=== PATIENT | male | born 1975 | race Caucasian/White ===

== ENCOUNTER 2023-06-17 15:03 | Outpatient (CLI) | payer SELFPAY ==
--- NOTE | 2023-06-17 15:47 | Sleep Patient Instructions ---
Sleep Center Visit Summary - Patient Visit Information Reason for Visit: Initial consult for evaluation of sleep disordered breathing and other sleep issues. - Patient Instructions Instructions Attached: Sleep Study Home Monitor Additional Instructions: You will be completing a sleep study, either an in-lab polysomnography (PSG) or home sleep study (HST). You will follow-up in the sleep care office after the sleep study is completed to hear the results and talk about therapy, if needed. You will be called by our office staff to schedule this appointment, but you may contact us with any questions. - Clinic Information Contact: [facility] [address] [place] [address] [email or web address] T: [phone]
--- NOTE | 2023-06-17 15:49 | SLEEP CARE CONSULTATION ---
Information from patient questionnaire entered by Franca Granda. I have reviewed and concur with the information entered by Franca Granda. This document represents the service I personally performed and the decisions made by me, Misa Roque ARNP. History of Present Illness Service Date and Time: 06/17/2023 1503 Reason for Visit: New patient Chief Complaint: reports: Unrefreshed sleep, Snoring, Excessive daytime sleepiness, Observed pauses in breathing, Fatigue, Other (HYPERTENSION) Date of Onset: 10+YRS Usual bedtime: 4712-8673 Time it takes to fall asleep: 5-15MINS Snores at night: Yes Observed to quit breathing while asleep: Yes Sleeps alone due to snoring: No Number of times waking at night: 1-5 Reasons for waking at night: reports: Choking (REPORTED BY SPOUSE), Snoring, Gasping for air (REPORTED BY SPOUSE), Bathroom, Other (UNKNOWN) Toss, Turn, or Twitch while sleeping: Yes Recalls having dreams: Yes Usually gets out of bed at: 0500 Feels refreshed in the morning: No Morning headache: Yes (4 days a week; lasting 1 hr to 4 hrs) Sleepy or fatigued during the day: Yes Ever fallen asleep while driving: Yes (drowsy driving; no accidents) Takes day naps: No Dreams during day naps: No Prior sleep studies: No Additional HPI information: I had the pleasure of seeing ROBYN GERMAN today regarding the possibility of him having a sleep disorder. His current complaints are unrefreshed sleep, snoring, excessive daytime sleepiness, observed pauses in breathing, fatigue and hypertension. He has hypertension. His tells him of "catching his breath" at night and has loud snoring. He wakes up with headaches and is not generally feeling rested in the morning. He says he generally feels more tired in morning than when he went to bed. He wakes up 2-4 times a night and can fall easily back to sleep. He has woke up from his own snoring. - Parasomnia Symptoms Ever been unable to move upon waking from sleep: No Walks in sleep: No Talks in sleep: Yes (whining noises) Ever acted out dreams in sleep: Yes (he will do arm motions according to ) Ever felt weak in the knees when startled or emotional: No Bothered by creepy, crawly, restless sensations in legs: No Problems with memory or concentration: No Subjective Initial Pendleton Sleepiness Scale score: 7 (05/24/23) Past Medical History Past Medical History: reports: Hypertension, Asthma Social History The patient's occupation is a [employer]. Patient is and lives in [place]. Have you smoked in the past 12 months: No Alcohol use: Yes Alcohol amount and frequency: 1 MONTHLY Caffeine use: Yes Caffeine amount and frequency: 2 cups coffee in morning Family History Family history of sleep disordered breathing: No Allergies and Home Medications Known drug allergies: No Drug allergies reviewed: Yes Home medication list reviewed: Yes (as listed) Allergy and home medication list: Allergies No Known Drug Allergies Allergy (Verified 06/15/23 12:11) Home Medications Medication Instructions Recorded Confirmed Last Taken Type Aspirin See Rx Instructions .ROUTE .COMPLEX 06/17/23 06/17/23 Unknown History Hydrochlorothiazide See Rx Instructions .ROUTE .COMPLEX 06/17/23 06/17/23 Un known History Lisinopril See Rx Instructions .ROUTE .COMPLEX 06/17/23 06/17/23 Unknown History Metoprolol Succinate See Rx Instructions .ROUTE .COMPLEX 06/17/23 06/17/23 Unknown History Multivitamin See Rx Instructions .ROUTE .COMPLEX 06/17/23 06/17/23 Unknown History amLODIPine See Rx Instructions .ROUTE .COMPLEX 06/17/23 06/17/23 Unknown History Review of Systems Weight gain over past 5 years: 50, in up phase right now Weight loss over past 5 years: 50 Cardiovascular: reports: high blood pressure Gastrointestinal: denies: heartburn Neurological: reports: headaches Psychiatric: denies: anxiety, depression Ear/Nose/Throat: reports: nasal congestion, sinus problems, dry mouth/throat. denies: tonsillectomy Endocrine: reports: sluggishness Musculoskeletal: reports: neck pain Immunologic: reports: sneezing Physical Exam Vital signs obtained and entered by: MISA AKINS Blood Pressure: 137/88 Cuff size: long (right arm) Heart Rate: 89 O2 Saturation: 96 Height: 5 ft 11 in Weight: 268 lb Body Mass Index: 37.3 BMI Classification: Obese Neck circumference: 18 (inches) Nostrils: patent to airflow Mouth and throat: narrow oropharynx Soft palate: long Hard palate: normal Uvula: normal Uvula visualization: 25% Mallampati Class III Tongue: normal in size Tonsils: 3+/kissing (on right only) Neck: normal w/o lymphadenopathy or thyromegaly Heart: regular rate and rhythm Lungs: clear bilaterally Impression and Plan 1. Suspected Obstructive Sleep Apnea-Hypopnea Syndrome, as suggested by a history of loud and irregular snoring, observed cessation of breath while asleep, gasping or choking in sleep, morning headache, frequent awakening during the night, unrefreshed sleep and excessive daytime sleepiness. Narrow oropharynx and obesity are common predisposing factors for obstructive sleep apnea-hypopnea syndrome. I recommend proceeding to polysomnography to confirm the diagnosis and to assess severity. If the patient has significant sleep disordered breathing, a manual CPAP titration study will also be performed to find the optimal treatment pressure. I informed the patient of what the sleep studies involve and after some discussion, obtained agreement to proceed. The pathophysiology of obstructive sleep apnea-hypopnea syndrome was discussed with the patient and health risks of cardiovascular and cerebrovascular disease if not treated. Risks of drowsy driving discussed in detail and patient advised to avoid long distance driving and to seedling puller at the first sign of drowsiness. Patient agreed to plan. * Schedule polysomnography. * Avoid long distance driving or driving when feeling sleepy. * Avoid alcohol, sedative and muscle relaxant around bedtime. * Attempt to lose weight. * Review instructions provided by trained office staff on how to prepare for the sleep study. * Return for follow-up after sleep study completed. Counseling Topics: Weight loss health impact Plan: PSG/HST Visit Type: In Office Time Spent with Patient (minutes): 30 Provider Statement: I spent 100% of the Face to Face Visit with the patient with greater than 50% spent counseling the patient and coordination of care.
[2023-06-17 16:08] VITALS: BP 137/88; O2SAT 96
== END 2023-06-17 15:04 | disposition home or self-care (01) ==
LOC: SC 15:03
PROVIDERS: ATTEND Nurse Practitioner Family
DX: G47.10 Hypersomnia, unspecified (principal); R53.83 Other fatigue; R06.83 Snoring; G47.8 Other sleep disorders; R06.81 Apnea, not elsewhere classified; I10 Essential (primary) hypertension; E66.9 Obesity, unspecified; Z68.37 Body mass index [BMI] 37.0-37.9, adult
CPT/HCPCS: 99203; 99212

== ENCOUNTER 2023-07-02 14:14 | Outpatient (CLI) | payer SELFPAY | END 2023-07-02 14:15 | disposition home or self-care (01) | LOC: SC 14:14 | PROVIDERS: ATTEND Nurse Practitioner Family | DX: G47.33 Obstructive sleep apnea (adult) (pediatric) (principal); R09.02 Hypoxemia; I10 Essential (primary) hypertension | CPT/HCPCS: 95806 ==

== ENCOUNTER 2023-07-28 13:07 | Outpatient (CLI) | payer SELFPAY ==
--- NOTE | 2023-07-28 14:18 | Sleep Patient Instructions ---
Sleep Center Visit Summary - Patient Visit Information Reason for Visit: Sleep study follow-up - Patient Instructions Instructions Attached: CPAP Additional Instructions: You are being started on CPAP therapy with pressure setting at 4-15 cmH2O. You will need to call the sleep care office to set up your follow up once you have your CPAP machine to check compliance and response to therapy at that time. You may call the office with any concerns about pressure feeling too low or too much for adjustment, if needed. You should contact DME supplier for any questions or concerns about mask or equipment. Please call office to schedule a follow up appointment in the sleep care office one month after obtaining new device. - Clinic Information Contact: [facility] [address] [place] [address] [email or web address] T: [phone]
--- NOTE | 2023-07-28 14:27 | SLEEP CARE CONSULTATION ---
Information from patient questionnaire entered by Franca Granda. I have reviewed and concur with the information entered by Franca Granda. This document represents the service I personally performed and the decisions made by me, Misa Roque ARNP. History of Present Illness Service Date and Time: 07/28/2023 1307 Initial Mentor Sleepiness Scale score: 7 Current Mentor Sleepiness Scale score: 9 Additional HPI information: ROBYN GERMAN returns for follow up and results of the recently performed polysomnography. The sleep study showed severe obstructive sleep apnea with an average AHI of 35.5 and myles oxygen saturation of 82%. I explained the pathophysiology behind obstructive sleep apnea. We then spent quite a bit of time discussing different treatment options. For mild obstructive sleep apnea, surgery and oral appliance are alternatives to nasal CPAP therapy but in moderate or severe cases, nasal CPAP is the most effective and reliable treatment. Because apnea is primarily in supine position, then positional management therapy could be effective. Methods discussed such as positioning with pillows, using a T-shirt with tennis balls in the back or commercial products that have a pillow format on back to prevent supine sleep. I reviewed the impact of weight changes on sleep apnea and strongly recommended losing weight. After some discussion, the patient opted to go with the nasal CPAP therapy. Nasal autoCPAP set at 4-15 cmH20 will be ordered with rationale explained. A manual titration study will be ordered if unable to find optimal pressure with office adjustments. I explained how CPAP machine works and what to expect when using the machine. Using CPAP every night in order to get used to it was emphasized. Patient advised to put CPAP mask on before getting into bed so as not to fall asleep without CPAP. To assist acclimation to CPAP use, it could also be used for a short time during day while reading or watching TV. The patient was instructed to call the CPAP supplier to discuss any mechanical problem that may occur. If the mask given is uncomfortable or is difficult to keep on through the night even with adjustment, contact the CPAP supplier as many will replace with another mask style if notified before 30 days. If snoring or perceives is not getting enough air or too much air from the machine, notify this office. Patient counseled not drink alcohol less than 4 hours befor e bedtime as it can increase snoring and apnea. Patient was cautioned about risks of drowsy driving until sleepiness symptoms resolve. Patient denies drowsy driving. Sleep Study - Results Type of Sleep Study: Home sleep study (COMPLETED 07/02/23) Prior sleep studies: No Polysomnography/Home Sleep Study results: Physician Impression: The quality of the study is good. The length of the study is adequate (> 240 minutes). Please also see the tabulated and graphic data. 1. Obstructive Sleep Apnea-Hypopnea (ICD-10 G47.33), severe, with an AHI of 35.5/hr and myles SaO2 of 82%. During the study, the patient had 160 apneas (160 obstructive, 0 central, 0 mixed) and 88 hypopneas. The longest episode lasted 96.0 seconds. The respiratory events occurred more frequently during supine sleep (supine AHI was 86.5 and non-supine, 13.84). 2. Hypoxemia (ICD-10 R09.02), mild, with the lowest oxygen saturation of 82 % and 18.5 minutes with SaO2 under 90%. Baseline oxygen saturation was normal (Average oxygen saturation was 93%). Allergies and Home Medications Known drug allergies: No Drug allergies reviewed: Yes Home medication list reviewed: Yes (no changes) Allergy and home medication list: Allergies No Known Drug Allergies Allergy (Verified 07/23/23 12:36) Review of Systems Review of systems same as previous: Yes (no changes) Physical Exam Vital signs obtained and entered by: MISA AKINS Blood Pressure: 158/110 Cuff size: long (right arm) Heart Rate: 73 O2 Saturation: 99 Height: 5 ft 11 in Weight: 272 lb 6.4 oz Body Mass Index: 38.0 BMI Classification: Obese Impression and Plan 1. Obstructive Sleep Apnea-Hypopnea Syndrome, severe, with lowest oxygen saturation of 82%. Obviously this is the cause of the patients symptoms of unrefreshed sleep, and excessive daytime sleepiness. Positive pressure therapy could benefit hypertension and asthma. Patient would like to start with the auto CPAP therapy for his sleep apnea. He is self-pay, no insurance. We will try him on an APAP trial. The patient will be started on nasal autoCPAP therapy with pressure set at 4-15 cmH2O. Compliance guidelines also reviewed. He was encouraged to call to have assistance with mask fittings and we discussed using a fullface mask since he is a mouth breather. He may also come in if he has any difficulty with figuring out how to run his machine or fit his mask. He can come in and we can give him a quick rundown on how to use the CPAP as needed. He voiced understanding and agreement. Because the apnea is more severe supine, I instructed to avoid sleeping supine using pillow positioning until able to start CPAP use. 2. Hypoxemia, mild, with a myles oxygen saturation of 82% and 18.5 minutes spent under 90%. The baseline oxygen saturation was normal with an average oxygen sa turation of 93%. 3. Elevated blood pressure reading in patient with hypertension. His blood pressure was 158/110 today. He denied feeling unwell or having any symptoms. He stated that this was a normal reading for him. 4. Obesity, unspecified. Currently patients BMI is 38. Obesity increases the risk of apnea, CPAP pressure requirements and overall health risks especially cardiovascular and diabetes. Thus patient is advised to lose weight. * Nasal auto CPAP therapy, pressure at 4-15 cm H2O. * Attempt to lose weight. * Avoid alcohol consumption near bedtime. * Avoid supine sleep until using CPAP. * The patient is again cautioned about driving until sleepiness completely resolves. * Return one month after CPAP obtained. I will assess response to therapy and compliance at that time. Counseling Topics: Weight loss health impact Prescriptions: Auto CPAP Plan: Start CPAP and followup Visit Type: In Office Time Spent with Patient (minutes): 25 Provider Statement: I spent 100% of the Face to Face Visit with the patient with greater than 50% spent counseling the patient and coordination of care.
[2023-07-28 14:30] VITALS: BP 158/110; O2SAT 99
== END 2023-07-28 13:08 | disposition home or self-care (01) ==
LOC: SC 13:07
PROVIDERS: ATTEND Nurse Practitioner Family
DX: G47.33 Obstructive sleep apnea (adult) (pediatric) (principal); R09.02 Hypoxemia; R03.0 Elevated blood-pressure reading, without diagnosis of hypertension; E66.9 Obesity, unspecified; Z68.38 Body mass index [BMI] 38.0-38.9, adult
CPT/HCPCS: 99212; 99213

== ENCOUNTER 2023-09-23 14:57 | Outpatient (CLI) | payer SELFPAY ==
--- NOTE | 2023-09-23 15:18 | Sleep Patient Instructions ---
Sleep Center Visit Summary - Patient Visit Information Reason for Visit: First compliance follow-up - Patient Instructions Additional Instructions: You were here for follow up of CPAP therapy. You will be continued on CPAP therapy with pressure at 10-13 cmH2O. Please let us know if the pressure change is uncomfortable and we can make further adjustments of the pressure. You should follow up with sleep care in 1-2 months. You may contact us sooner for any questions or concerns. - Clinic Information Contact: [facility] [address] [place] [address] [email or web address] T: [phone]
--- NOTE | 2023-09-23 15:20 | SLEEP CARE CONSULTATION ---
Information from patient questionnaire entered by Lloyd Granda. I have reviewed and concur with the information entered by Lloyd Granda. This document represents the service I personally performed and the decisions made by , Misa Roque ARNP. History of Present Illness Service Date and Time: 09/23/20231456 Previous diagnosis: Severe, Obstructive Sleep Apnea-Hypopnea Syndrome AHI: 35.5 (07/02/23) Reason for follow up: first compliance Equipment type: CPAP (RESMED Airsense 11, s/u 07/30/23, NEED MACHINE) Equipment obtained from: Other ([employer]) Mask brand: [employer] (Simplus, medium cushion) Backup mask available: No (will keep old mask when replaced) Prior sleep studies: No Type of Sleep Study: Home sleep study (COMPLETED 07/02/23) HPI additional information: ROBYN GERMAN was diagnosed to have severe, AHI 35.5, obstructive sleep apnea-hypopnea syndrome and returned today for CPAP therapy first compliance follow-up. Sleep Study - Results Type of Sleep Study: Home sleep study (COMPLETED 07/02/23) Prior sleep studies: No CPAP Compliance Data - Data Reviewed with Patient Average duration of nightly device use: 6 hours 48 minutes Compliance rate %: 100 (55/55 days used) Current pressure setting (cmH2O): 4-15 (median 7.9, avg 11.1, max 12.5) Average residual AHI: 1 Central apnea: 0.1 Obstructive apnea: 0.5 Hypopnea: 0.4 Average large leak: 7.7 L/min Subjective Patient concerns: reports: mask leak noise (just needs adjustment of his mask). denies: aerophagia, mask discomfort, air blowing in eyes, condensation in mask/hose, nasal congestion, dry mouth, nose, throat, epistaxis Observed to snore while using device: No Current pressure setting perceived as: comfortable On therapy, patient: reports: sleeping better, awakening more refreshed, more rested overall. denies: drowsiness while driving Initial [place] Sleepiness Scale score: 7 Current [place] Sleepiness Scale score: 3 () Allergies and Home Medications Known drug allergies: No Drug allergies reviewed: Yes Home medication list reviewed: Yes (no changes) Allergy and home medication list: Allergies No Known Drug Allergies Allergy (Verified 09/21/23 11:35) Review of Systems Review of systems same as previous: Yes (NO CHANGE) Physical Exam Vital signs obtained and entered by: LLOYD Claros MA Blood Pressure: 155/91 (LEFT ARM) Cuff size: long Heart Rate: 74 O2 Saturation: 98 Height: 5 ft 11 in Weight: 272 lb 9.6 oz Body Mass Index: 38.0 BMI Classification: Obese Impression and Plan 1. Obstructive Sleep Apnea-Hypopnea Syndrome, severe, with good treatment compliance and good apnea control. On CPAP therapy, the patient has better sleep quality and is more rested overall. He has significant improvement of his sleep apnea and is satisfied with current therapy. The patients pressure will be changed to autoCPAP 10-13 cmH20 to reflect pressure being used. Patient advised to contact me if pressure change is uncomfortable so that it can be adjusted. Goals for apnea control discussed. Patient's apnea severity and rationale for treatment to reduce apnea, improve sleep quality and reduce cardiovascular and cerebrovascular events was reviewed. I also reviewed the benefit of consistent device use of CPAP for hypertension. 2. Obesity, unspecified. Currently patients BMI is 38. Obesity increases the risk of apnea, CPAP pressure requirements and overall health risks especially cardiovascular and diabetes. Thus patient is advised to lose weight. * Change auto CPAP pressure to 10-13 cmH2O * Notify me if snoring with mask or feeling that the pressure is too much or too little * Attempt to lose weight * Call this office if any problems using CPAP * Return for follow up in 1-2 months, or sooner if concerns arise Adjust device pressure to (cmH2O): 10-13 Counseling Topics: Spare mask, Weight loss health impact Follow up with Sleep Care in: 1-2 months Visit Type: In Office Time Spent with Patient (minutes): 20 Provider Statement: I spent 100% of the Face to Face Visit with the patient with greater than 50% spent counseling the patient and coordination of care.
[2023-09-23 15:55] VITALS: BP 155/91; O2SAT 98
== END 2023-09-23 14:58 | disposition home or self-care (01) ==
LOC: SC 14:57
PROVIDERS: ATTEND Nurse Practitioner Family
DX: G47.33 Obstructive sleep apnea (adult) (pediatric) (principal); E66.9 Obesity, unspecified; Z68.38 Body mass index [BMI] 38.0-38.9, adult
CPT/HCPCS: 99212; 99213

== ENCOUNTER 2023-11-06 13:08 | Outpatient (CLI) | payer SELFPAY ==
--- NOTE | 2023-11-06 13:29 | Sleep Patient Instructions ---
Sleep Center Visit Summary - Patient Visit Information Reason for Visit: 6-week follow-up for PAP therapy - Patient Instructions Additional Instructions: You were here for follow up of CPAP therapy. You will be continued on CPAP therapy with pressure at 10-13 cmH2O. You should follow up with sleep care in 3 months. You may contact us sooner for any questions or concerns. - Clinic Information Contact: [facility] [address] [place] [email or web address] T: [phone]
--- NOTE | 2023-11-06 13:32 | SLEEP CARE CONSULTATION ---
Information from patient questionnaire entered by Josephine Nava. I have reviewed and concur with the information entered by Josephine Nava. This document represents the service I personally performed and the decisions made by , Misa Roque ARNP. History of Present Illness Service Date and Time: 11/06/2023 1308 Previous diagnosis: Severe, Obstructive Sleep Apnea-Hypopnea Syndrome AHI: 35.5 (07/02/23) Reason for follow up: other (6-Week F/U -Pressure change) Equipment type: CPAP (RESMED Airsense 11, s/u 07/30/23, NEED MACHINE) Equipment obtained from: Other ([employer]) Mask style: Full face Mask brand: [employer] (Simplus) Backup mask available: No Prior sleep studies: No Type of Sleep Study: Home sleep study (COMPLETED 07/02/23) HPI additional information: ROBYN GERMAN was diagnosed to have severe, AHI 35.5, obstructive sleep apnea- hypopnea syndrome and returned today for CPAP therapy six week follow-up. Sleep Study - Results Type of Sleep Study: Home sleep study (COMPLETED 07/02/23) Prior sleep studies: No CPAP Compliance Data - Data Reviewed with Patient Average duration of nightly device use: 7 h 29 min Compliance rate %: 100 ( days used) Current pressure setting (cmH2O): 10-13 Average residual AHI: 0.9 Central apnea: 0.1 Obstructive apnea: 0.3 Hypopnea: 0.5 Average large leak: 12.1 L/min Subjective Patient concerns: denies: aerophagia, mask discomfort, air blowing in eyes, mask leak noise, condensation in mask/hose, nasal congestion, dry mouth, nose, throat, epistaxis Observed to snore while using device: No Current pressure setting perceived as: comfortable On therapy, patient: reports: sleeping better, awakening more refreshed, being more awake and alert during the day, more rested overall. denies: drowsiness while driving Initial [place] Sleepiness Scale score: 7 (06/17/23) Current [place] Sleepiness Scale score: 1 (11/06/23) Allergies and Home Medications Known drug allergies: No Drug allergies reviewed: Yes Home medication list reviewed: Yes (no changes) Allergy and home medication list: Allergies No Known Drug Allergies Allergy Review of Systems Review of systems same as previous: Yes (no changes) Physical Exam Vital signs obtained and entered by: Misa Todd NP Blood Pressure: 167/104 (pt states always high, normal pressure) Cuff size: long (left arm) Heart Rate: 65 O2 Saturation: 97 Height: 5 ft 11 in Weight: 271 lb 6.4 oz Body Mass Index: 37.8 BMI Classification: Obese Impression and Plan 1. Obstructive Sleep Apnea-Hypopnea Syndrome, severe, with good treatment compliance and good apnea control. On CPAP therapy, the patient has better sleep quality and is more rested overall. Patient has significant improvement of their sleep apnea and is satisfied with current CPAP therapy. Patient denies problems with oral dryness, nasal congestion, epistaxis, skin irritation or aerophagia. Patient's apnea severity and rationale for treatment to reduce apnea, improve sleep quality and reduce cardiovascular and cerebrovascular events was reviewed. I also reviewed the benefit of consistent device use of CPAP for hypertension. 2. Obesity, unspecified. Currently patients BMI is 37.8. Obesity increases the risk of apnea, CPAP pressure requirements and overall health risks especially cardiovascular and diabetes. Thus patient is advised to lose weight. * Continue auto CPAP pressure at 10-13 cmH2O * Notify me if snoring with mask or feeling that the pressure is too much or too little * Attempt to lose weight * Call this office if any problems using CPAP * Return for follow up in 3 months, or sooner if concerns arise Counseling Topics: Spare mask, Weight loss health impact Follow up with Sleep Care in: 3 months Visit Type: In Office Time Spent with Patient (minutes): 14 Provider Statement: I spent 100% of the Face to Face Visit with the patient with greater than 50% spent counseling the patient and coordination of care.
[2023-11-06 13:40] VITALS: BP 167/104; O2SAT 97
== END 2023-11-06 13:09 | disposition home or self-care (01) ==
LOC: SC 13:08
PROVIDERS: ATTEND Nurse Practitioner Family
DX: G47.33 Obstructive sleep apnea (adult) (pediatric) (principal); E66.9 Obesity, unspecified; Z68.37 Body mass index [BMI] 37.0-37.9, adult
CPT/HCPCS: 99212; 99213